=== PATIENT | male | born 1950 | race African-American/Black ===

== ENCOUNTER 2020-10-20 07:59 | Day surgery (SDC) | payer OTHER ==
[2020-10-16 10:52] VITALS: BMI 38.2
[2020-10-20] MEDS ORDERED: PROPOFOL 20 ML ONE ×4 (10:25)
[2020-10-20 11:55] VITALS: BP 120/76; PULSE 84; TEMP 98
== END 2020-10-20 11:55 | disposition home or self-care (01) ==
LOC: FASU-ENDO 07:59
PROVIDERS: ATTEND Internal Medicine Gastroenterology
PROC: 0DB98ZX Excision of Duodenum, Via Natural or Artificial Opening Endoscopic, Diagnostic (ICD-10-PCS; 2020-10-20)
PROC: 0DB78ZX Excision of Stomach, Pylorus, Via Natural or Artificial Opening Endoscopic, Diagnostic (ICD-10-PCS; 2020-10-20)
PROC: 0DBN8ZX Excision of Sigmoid Colon, Via Natural or Artificial Opening Endoscopic, Diagnostic (ICD-10-PCS; principal; 2020-10-20 10:26)
DX: D12.5 Benign neoplasm of sigmoid colon (principal); K29.70 Gastritis, unspecified, without bleeding; B96.81 Helicobacter pylori [H. pylori] as the cause of diseases classified elsewhere; D50.9 Iron deficiency anemia, unspecified; Z86.010 Personal history of colon polyps
CPT/HCPCS: 88305-TC; 88342-TC